=== PATIENT | female | born 1970 | race Asian ===

== ENCOUNTER 2020-01-09 03:25 | Emergency (ER) | payer OTHER ==
[~2020-01-09] VITALS: Ht 154.9 cm; Wt 62.7 kg
[2020-01-09 03:53] VITALS: BP 152/72
[2020-01-09] MEDS ORDERED: IBUPROFEN 800 MG TABLET PO ONE (04:00)
[2020-01-09] MEDS ORDERED: PENICILLIN V POTASSIUM 500 MG TABLET PO ONE (04:00)
== END 2020-01-09 04:52 | disposition home or self-care (01) ==
LOC: EMS 03:27
DX: K02.9 Dental caries, unspecified (principal); R03.0 Elevated blood-pressure reading, without diagnosis of hypertension

== ENCOUNTER 2023-06-29 08:05 | Emergency (ER) | payer SELFPAY ==
[~2023-06-29] VITALS: Ht 152.4 cm; Wt 62.7 kg
[2023-06-29 08:10] VITALS: TEMP 98.3
[2023-06-29] MEDS ORDERED: MECLIZINE HCL 25 MG TABLET PO ONE (08:30)
[2023-06-29] MEDS ORDERED: ONDANSETRON HCL 4 MG TABLET PO ONE (09:15)
[2023-06-29 10:27] VITALS: BP 147/99; PULSE 66; RESP 16
[2023-06-29] MEDS ORDERED: MECL-226 PO (11:46)
== END 2023-06-29 12:44 | disposition home or self-care (01) ==
LOC: EMS 08:14
DX: R42 Dizziness and giddiness (principal); R11.2 Nausea with vomiting, unspecified
CPT/HCPCS: 99285; 70450; 93005; Q0162

== ENCOUNTER 2023-08-16 12:07 | Emergency (ER) | payer OTHER ==
[~2023-08-16] VITALS: Ht 152.4 cm; Wt 62.7 kg
[~2023-08-16 12:07] MED LIST: MECL-226 PO
[2023-08-16 12:08] VITALS: TEMP 97.6
[2023-08-16] MEDS ORDERED: SODIUM CHLORIDE 0.9% 1,000 ML IV ONE (14:15)
[2023-08-16 14:42] LABS: APPEARANCE,URINE CLEAR (CLEAR); BILIRUBIN,URINE NEGATIVE (NEGATIVE); COLOR,URINE LIGHT YELLOW (YELLOW); GLUCOSE, URINE (UA) NEGATIVE (NEGATIVE); KETONES,URINE NEGATIVE (NEGATIVE); LEUKOCYTE ESTERASE ,URINE SMALL (NEGATIVE); NITRATE,URINE NEGATIVE (NEGATIVE); OCCULT BLOOD,URINE NEGATIVE (NEGATIVE); PROTEIN,URINE NEGATIVE (NEGATIVE); SPECIFIC GRAVITIY, URINE 1.012 (1.003-1.030); UROBILINOGEN,URINE <=1.0 mg/dL (<=1.0)
[2023-08-16 14:47] LABS: BACTERIA,URINE None Seen /HPF (None Seen); RBC,URINE 0-2 /HPF (0-2)
[2023-08-16 14:50] LABS: BASOPHILS % (AUTO) 0.6 % (0.0-2.0); EOSINOPHILS % (AUTO) 3.1 % (1.0-6.0); HEMATOCRIT 40.6 % (36-46); HEMOGLOBIN 13.6 g/dL (12.0-16.0); LYMPHOCYTES # (AUTO) 1.8 K/uL (1.0-4.8); LYMPHOCYTES % (AUTO) 29.7 % (22.0-44.0); MEAN CORPUSCULAR HEMOGLOBIN 30.1 pg (26.0-34.0); MEAN CORPUSCULAR HGB CONC 33.6 G/dL (31.0-37.0); MEAN CORPUSCULAR VOLUME 90 fL (80-100); MONOCYTES # (AUTO) 0.3 K/uL (0.1-1.0); MONOCYTES % (AUTO) 5.7 % (2.0-9.0); NEUTROPHILS # (AUTO) 3.7 K/uL (1.8-7.7); NEUTROPHILS % (AUTO) 60.9 % (40.0-70.0); PLATELET COUNT (AUTO) 265 K/uL (150-450); RED BLOOD CELL COUNT(AUTO) 4.52 MIL/uL (4.00-5.20); RED CELL DISTRIBUTION WIDTH 13.3 % (11.5-14.5)
[2023-08-16 15:03] LABS: ANION GAP 8 mmol/L (8-16); CALCIUM, TOTAL 9.5 mg/dL (8.8-10.5); CARBON DIOXIDE 28 mmol/L (22-29); CHLORIDE 103 mmol/L (98-107); CREATININE 0.81 mg/dL (0.60-1.30); GLOMERULAR FILTR. RATE CALC > 60 mL/min (>60); GLUCOSE,RANDOM 104 mg/dL (70-110); POTASSIUM 3.9 mmol/L (3.5-5.1); SODIUM SERUM 139 mmol/L (136-145); UREA NITROGEN, BLOOD 11 mg/dL (7-18)
[2023-08-16 15:08] LABS: ALANINE AMINOTRANSFERASE 50 U/L (12-78); ALBUMIN 4.6 g/dL (3.4-5.0); ALKALINE PHOSPHATASE 95 U/L (46-116); ASPARTATE AMINOTRANSFERASE 30 U/L (15-37); BILIRUBIN,TOTAL 0.4 mg/dL (0.1-1.0); TOTAL PROTEIN, SERUM 8.7 g/dL (6.4-8.2)
[2023-08-16] MEDS ORDERED: KETOROLAC TROMETHAMINE 30 MG/ML VIAL IVP ONE (15:15)
[2023-08-16 16:14] VITALS: BP 148/83; PULSE 64; RESP 18
[2023-08-16 16:32] LABS: COVID AG,FIA SOURCE NASAL SWAB
[2023-08-16 16:57] LABS: SARS-COV2 (COVID) ANTIGEN,FIA Negative (Negative)
[2023-08-16 16:59] LABS: INFLUENZA TYPE A NEGATIVE FOR TYPE A (NEGATIVE); INFLUENZA TYPE B NEGATIVE FOR TYPE B (NEGATIVE)
== END 2023-08-16 17:26 | disposition home or self-care (01) ==
LOC: EMS 12:07
DX: G43.909 Migraine, unspecified, not intractable, without status migrainosus (principal); Z20.822 Contact with and (suspected) exposure to COVID-19
CPT/HCPCS: 99285; 96374; 70450; 96361; 87426; 80053; 81001; 85025; 87804; 36415; J1885; J7030

== ENCOUNTER 2024-12-07 01:04 | Inpatient (IN) | payer OTHER ==
[~2024-12-07] VITALS: Ht 154.9 cm; Wt 60.0 kg
[2024-12-07 01:59] LABS: MEAN CORPUSCULAR VOLUME 90 fL (80-100); MONOCYTES # (AUTO) 0.3 K/uL (0.1-1.0)
[2024-12-07 02:06] LABS: BASOPHILS % (AUTO) 0.6 % (0.0-2.0); EOSINOPHILS % (AUTO) 2.8 % (1.0-6.0); HEMATOCRIT 41.8 % (36-46); HEMOGLOBIN 14.1 g/dL (12.0-16.0); LYMPHOCYTES # (AUTO) 2.2 K/uL (1.0-4.8); LYMPHOCYTES % (AUTO) 28.1 % (22.0-44.0); MEAN CORPUSCULAR HEMOGLOBIN 30.2 pg (26.0-34.0); MEAN CORPUSCULAR HGB CONC 33.7 G/dL (31.0-37.0); MONOCYTES % (AUTO) 3.9 % (2.0-9.0); NEUTROPHILS % (AUTO) 64.6 % (40.0-70.0); PLATELET COUNT (AUTO) 273 K/uL (150-450); RED BLOOD CELL COUNT(AUTO) 4.67 MIL/uL (4.00-5.20); RED CELL DISTRIBUTION WIDTH 13.2 % (11.5-14.5); WHITE BLOOD COUNT (AUTO) 7.8 K/uL (4.5-11.0)
[2024-12-07 02:08] LABS: ANION GAP 5 mmol/L (8-16); CARBON DIOXIDE 29 mmol/L (22-29); CHLORIDE 106 mmol/L (98-107); CREATININE 0.77 mg/dL (0.60-1.30); GLOMERULAR FILTR. RATE CALC > 60 mL/min (>60); GLUCOSE,RANDOM 113 mg/dL (70-110); POTASSIUM 4.4 mmol/L (3.5-5.1); SODIUM SERUM 140 mmol/L (136-145); UREA NITROGEN, BLOOD 13 mg/dL (7-18)
[2024-12-07 02:15] LABS: ALBUMIN 4.1 g/dL (3.4-5.0); B-TYPE NATRIURETIC PEPTIDE 35 pg/mL (0-100); BILIRUBIN,DIRECT 0.1 mg/dL (0.00-0.20); BILIRUBIN,TOTAL 0.5 mg/dL (0.1-1.0)
[2024-12-07 02:19] LABS: CREATINE KINASE, TOTAL ONLY 328 U/L (26-192)
[2024-12-07 02:22] LABS: TROPONIN I-HIGH SENSITIVITY 4 ng/L (<51)
[2024-12-07 03:11] LABS: CALCIUM, TOTAL 9.4 mg/dL (8.8-10.5)
[2024-12-07] MEDS: HydrALAZINE HCL 20 MG/ML VIAL IVP ONE (03:16)
[2024-12-07 05:18] LABS: APPEARANCE,URINE CLEAR (CLEAR); BILIRUBIN,URINE NEGATIVE (NEGATIVE); COLOR,URINE COLORLESS (YELLOW); GLUCOSE, URINE (UA) NEGATIVE (NEGATIVE); KETONES,URINE NEGATIVE (NEGATIVE); LEUKOCYTE ESTERASE ,URINE SMALL (NEGATIVE); NITRATE,URINE NEGATIVE (NEGATIVE); OCCULT BLOOD,URINE NEGATIVE (NEGATIVE); PROTEIN,URINE NEGATIVE (NEGATIVE); SPECIFIC GRAVITIY, URINE 1.004 (1.003-1.030); UROBILINOGEN,URINE <=1.0 mg/dL (<=1.0)
[2024-12-07 05:35] LABS: BACTERIA,URINE None Seen /HPF (None Seen); RBC,URINE None Seen /HPF (0-2); SQUAMOUS EPITHELIAL CELL,UR Few /LPF (None Seen); WBC,URINE 0-2 /HPF (0-5)
[2024-12-07 09:33] VITALS: BP 134/77; PULSE 57; RESP 18; TEMP 97.7; O2SAT 99
[2024-12-07 11:53] VITALS: BP 141/82; PULSE 60; RESP 19; TEMP 98.2; O2SAT 98
[2024-12-07 12:52] VITALS: BP 144/88; PULSE 65; RESP 18; O2SAT 100
[2024-12-07] MEDS ORDERED: AMLO-257 PO (13:24)
[2024-12-07] MEDS: AmLODIPine BESYLATE 5 MG TABLET PO SCH (13:28)
[2024-12-07] MEDS ORDERED: ACETAMINOPHEN 325 MG TABLET PO PRN (13:30)
[2024-12-07 16:10] VITALS: BP 121/70; PULSE 61; RESP 17; TEMP 98.4; O2SAT 98
== END 2024-12-07 18:00 | disposition home or self-care (01) | DRG 305 ==
LOC: EMS 01:04 → EDH 08:21 → 5N 09:20
PROVIDERS: ADMIT Internal Medicine; ATTEND Internal Medicine
DX: I16.0 Hypertensive urgency (principal); E78.00 Pure hypercholesterolemia, unspecified; I10 Essential (primary) hypertension; Z87.891 Personal history of nicotine dependence
CPT/HCPCS: 70450; 71045; 80048; 80076; 81001; 82550; 83880; 84484; 85025; 93005; 96374; 99285; J0360; 36415-L1; 36415-TC